=== PATIENT | female | born 1970 | race Caucasian/White ===

== ENCOUNTER 2023-03-06 10:57 | Emergency (ER) | payer OTHER ==
[~2023-03-06] VITALS: Ht 154.9 cm; Wt 46.8 kg
[2023-03-06 10:59] VITALS: TEMP 98.4
[2023-03-06 11:15] LABS: COVID AG,FIA SOURCE NASAL SWAB
[2023-03-06] MEDS ORDERED: ACETAMINOPHEN 325 MG TABLET PO ONE (11:30)
[2023-03-06] MEDS ORDERED: IBUPROFEN 400 MG TABLET PO ONE (11:30)
[2023-03-06 11:37] LABS: SARS-COV2 (COVID) ANTIGEN,FIA Negative (Negative)
[2023-03-06 11:38] LABS: INFLUENZA TYPE A NEGATIVE FOR TYPE A (NEGATIVE); INFLUENZA TYPE B POSITIVE FOR TYPE B (NEGATIVE)
[2023-03-06 11:50] VITALS: BP 132/87; PULSE 99; RESP 18
[2023-03-06] MEDS ORDERED: ACET-2247 PO (11:52)
[2023-03-06] MEDS ORDERED: IBUP-1506 PO (11:52)
== END 2023-03-06 12:35 | disposition home or self-care (01) ==
LOC: EMS 10:58
DX: J10.1 Influenza due to other identified influenza virus with other respiratory manifestations (principal); Z20.822 Contact with and (suspected) exposure to COVID-19
CPT/HCPCS: 71045; 87430; 87804; 99284